=== PATIENT | male | born 1975 | race Caucasian/White ===

== ENCOUNTER 2016-07-23 08:49 | Emergency (ER) | payer MEDICAID ==
[2016-07-23 08:56] VITALS: BMI 23.7
[2016-07-23 08:57] VITALS: BP 130/81; PULSE 80; RESP 18; TEMP 98.4; O2SAT 99
[2016-07-23] MEDS ORDERED: Naproxen 550 mg Tab PO STA (09:06)
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
[2016-07-23] MEDS ORDERED: Naproxen 550 mg Tab PO ONE (09:30)
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
== END 2016-07-23 09:50 | disposition home or self-care (01) ==
LOC: C.ER 08:49
DX: M54.5 Low back pain (principal); V43.52XA Car driver injured in collision with other type car in traffic accident, initial encounter; Y92.410 Unspecified street and highway as the place of occurrence of the external cause